=== PATIENT | male | born 1950 | race Caucasian/White ===

== ENCOUNTER → 2022-08-25 | Outpatient (CLI) | payer OTHER | END | disposition home or self-care (01) | LOC: RADMN 13:11 | PROVIDERS: ATTEND Internal Medicine Cardiovascular Disease | DX: I67.82 Cerebral ischemia (principal); J34.89 Other specified disorders of nose and nasal sinuses; G45.9 Transient cerebral ischemic attack, unspecified | CPT/HCPCS: 70551 ==